=== PATIENT | female | born 1935 | race Caucasian/White ===

== ENCOUNTER → 2016-04-20 | Outpatient (CLI) | payer OTHER ==
[~2016-04-20] MED LIST: ASPI81TA28 PO; CHOL1CAP57 PO; CLOP1TAB15 PO; CYAN100T PO; CYAN1LOZ PO; FLUO20CA35 PO; FURO80TA63 PO; GLIM4TAB2 PO; HYDR-4715 PO; INSDGI SC; ISOS20TA15 PO; METO25TA56 PO; MULT-506 PO; NAPR1TAB9 PO; ONDA4TAB10 SL; ROSU5TAB PO; TRAM-10 PO
--- NOTE | 2016-04-23 15:32 | ELECTROENCEPHALOGRAPH REPORT ---
CLINICAL DIAGNOSIS: Dizzy spells with memory difficulties. Question seizure activity. EEG DIAGNOSIS: Essentially normal during wakefulness. DESCRIPTION OF TRACING: This EEG was obtained in the laboratory and was of good technical quality. There were few muscle movement artifacts captured by simultaneous video analysis of patient movement and behavior. Photic stimulation was performed. Hyperventilation was not. Drowsiness and light sleep were not recorded. Under these conditions, there is evidence for normal background rhythm in the alpha range of up to 10-11 Hz of maximum frequency and of up to 30 microvolts of maximum amplitude. This activity is maximum in posterior head regions and bilaterally symmetrical. Polymorphic mid to upper frequency theta activity is seen over all head regions without clear focal or regional predominance. Anterior head region maximum bilaterally symmetrical low voltage fast activity in the beta range is present. At no time during the waking tracing is there evidence for potentially epileptogenic activity in the form of polyspike or spike wave bursts, focal sharp waves or focal spikes. INTERPRETATION: This electroencephalogram is essentially normal during wakefulness without evidence for focal or generalized encephalopathy and without evidence for potentially epileptogenic activity.
== END | disposition home or self-care (01) ==
LOC: C.NEUR 08:47
PROVIDERS: ATTEND Psychiatry & Neurology Neurology
DX: R42 Dizziness and giddiness (principal); R41.3 Other amnesia